=== PATIENT | male | born 1980 | race Caucasian/White ===

== ENCOUNTER 2016-10-27 01:36 | Emergency (ER) | payer OTHER ==
[~2016-10-27] VITALS: Ht 177.8 cm; Wt 85.9 kg
[2016-10-27 01:37] VITALS: BP 140/91
== END 2016-10-27 02:09 | disposition home or self-care (01) ==
LOC: ED 02:00
DX: B30.9 Viral conjunctivitis, unspecified (principal)
CPT/HCPCS: 99283